=== PATIENT | female | born 1995 ===

== ENCOUNTER 2016-08-25 01:29 | Emergency (ER) | payer OTHER ==
[2016-08-25 02:29] LABS: PH,URINE 6.5 (5.0-8.0); URINE APPEARANCE CLEAR; URINE BILIRUBIN NEGATIVE (NEGATIVE); URINE BLOOD 1+ (NEGATIVE); URINE COLOR STRAW; URINE GLUCOSE (UA) NEGATIVE (NEGATIVE); URINE LEUKOCYTE ESTERASE NEGATIVE (NEGATIVE); URINE NITRITE NEGATIVE (NEGATIVE); URINE PROTEIN NEGATIVE (NEGATIVE); URINE UROBILINOGEN NORMAL (0-1 mg/dl)
[2016-08-25 02:30] LABS: ABSOLUTE NEUTROPHIL COUNT 4.6 K/mm3 (1.8-7.7); BASO % 0.4 % (0.2-1.0); EOS # 0.1 (0.0-0.5); EOS % 1.4 % (0.9-2.9); HEMATOCRIT 44.3 % (37.0-47.0); HEMOGLOBIN 14.8 gm/l (12.0-16.0); IMM NEUT% 0.4 % (0-1); LYMPH # 3.1 (1.0-4.8); LYMPH % 36.7 % (15-45); MEAN CELL VOLUME 83.7 fl (81.0-99.0); MEAN CORPUSCULAR HGB CONC 33.4 g/dl (33.0-37.0); MEAN PLATELET VOLUME 9.8 fl (7.4-10.4); MONO # 0.5 (0.0-0.8); MONO % 6.4 % (4-12); NEUT % 54.7 % (43-75); PLATELET COUNT 262 K/mm3 (130-400)
[2016-08-25 02:31] LABS: URINE BACTERIA 0; URINE EPITHELIAL CELLS FEW /hpf; URINE WBC NEG /hpf
[2016-08-25 02:37] LABS: AMPHETAMINES/METHAMPHETAMINES NEGATIVE (NEGATIVE); COCAINE NEGATIVE (NEGATIVE); MARIJUANA NEGATIVE (NEGATIVE); METHADONE NEGATIVE (NEGATIVE); OPIATES POSITIVE (NEGATIVE); TRICYCLIC ANTIDEPRESSANTS NEGATIVE (NEGATIVE)
== END 2016-08-25 03:51 | disposition home or self-care (01) ==
LOC: ED 01:29
DX: I10 Essential (primary) hypertension (principal); R51 Headache; R41.0 Disorientation, unspecified